=== PATIENT | female | born 1935 | race Caucasian/White ===

== ENCOUNTER 2018-11-05 15:26 | Emergency (ER) | payer MEDICARE, MEDICAID ==
[~2018-11-05] VITALS: Ht 157.5 cm; Wt 54.5 kg
[2018-11-05] MEDS ORDERED: [UNRECOGNIZED DRUG - CODE] PO (15:32)
[2018-11-05] MEDS ORDERED: LISI-661 PO (15:32)
[2018-11-05] MEDS ORDERED: ACETAMINOPHEN 500 MG TABLET PO ONE (16:45)
[2018-11-05 17:25] VITALS: BP 122/83
== END 2018-11-05 18:20 | disposition home or self-care (01) ==
LOC: EMS 15:26
DX: S52.514A Nondisplaced fracture of right radial styloid process, initial encounter for closed fracture (principal); S52.614A Nondisplaced fracture of right ulna styloid process, initial encounter for closed fracture; I10 Essential (primary) hypertension; Z79.899 Other long term (current) drug therapy; W19.XXXA Unspecified fall, initial encounter; Y93.89 Activity, other specified; Y92.89 Other specified places as the place of occurrence of the external cause; Y99.8 Other external cause status

== ENCOUNTER → 2019-01-01 | Day surgery (SDC) | payer MEDICARE, MEDICAID ==
[~2019-01-01] VITALS: Ht 167.6 cm; Wt 48.2 kg
[~2019-01-01] MED LIST: CYCLOPENTOLATE HCL 1% 2 ML OPHTHALMIC SOLUTION ONE; EPINEPHrine 1:1,000 [1 MG/ML] AMP IM ONE; FLURBIPROFEN SODIUM 0.03% 2.5 ML OPHTHALMIC SOLUTION ONE; FentaNYL CITRATE-PF 100 MCG/2 ML VIAL IVP ONE; HYALURONATE SOD/CHONDROITIN SOD 0.5 ML VIAL IO ONE; HYALURONATE SODIUM 12 MG/ML 0.8 ML SYRINGE IO ONE; LIDOCAINE/PF 1% 2 ML VIAL IARTIC ONE; LISI-661 PO; MIDAZOLAM HCL 2 MG/2 ML VIAL IVP ONE; OFLOXACIN 0.3% 5 ML OPHTHALMIC SOLUTION ONE; PHENYLEPHRINE HCL 2.5% 2 ML OPHTHALMIC SOLUTION ONE; POVIDONE-IODINE 10% 15 ML SOLUTION UD TP ONE; RINGERS SOLUTION,LACTATED 500 ML IV ONE; TETRACAINE HCL/PF 0.5% 4 ML OPHTHALMIC SOLUTION OD ONE; TETRACAINE HCL/PF 0.5% 4 ML OPHTHALMIC SOLUTION ONE; TROPICAMIDE 1% 2 ML OPHTHALMIC SOLUTION ONE; [UNRECOGNIZED DRUG - CODE] PO
[2019-01-01] MEDS: OFLOXACIN 0.3% 5 ML OPHTHALMIC SOLUTION OD SCH ×3 (08:59→09:10)
[2019-01-01] MEDS: FLURBIPROFEN SODIUM 0.03% 2.5 ML OPHTHALMIC SOLUTION OD SCH ×3 (08:59→09:10)
[2019-01-01] MEDS: PHENYLEPHRINE HCL 2.5% 2 ML OPHTHALMIC SOLUTION OD SCH ×3 (08:59→09:10)
[2019-01-01] MEDS: CYCLOPENTOLATE HCL 1% 2 ML OPHTHALMIC SOLUTION OD SCH ×3 (08:59→09:10)
[2019-01-01] MEDS: TROPICAMIDE 1% 2 ML OPHTHALMIC SOLUTION OD SCH ×3 (08:59→09:10)
== END | disposition home or self-care (01) ==
LOC: SURGERY 07:55
PROVIDERS: ATTEND Ophthalmology
DX: H25.21 Age-related cataract, morgagnian type, right eye (principal); I10 Essential (primary) hypertension; F03.90 Unspecified dementia, unspecified severity, without behavioral disturbance, psychotic disturbance, mood disturbance, and anxiety; Z87.442 Personal history of urinary calculi; Z79.899 Other long term (current) drug therapy; Z98.42 Cataract extraction status, left eye; Z96.1 Presence of intraocular lens; Z98.890 Other specified postprocedural states
CPT/HCPCS: 66982; 93005; C1780; J0171; J2250; J3010; J3490 ×2; J7120